=== PATIENT | female | born 1970 | race African-American/Black ===

== ENCOUNTER → 2017-04-01 | Outpatient (CLI) | payer BC ==
--- NOTE | 2017-04-01 09:36 | RAD ---
EXAM: DIGITAL SCREEN BILAT W/CAD. HISTORY: Screening. COMPARISON: 11/16/2015 and 07/19/2014. FINDINGS: Digital mammography was performed. Computer-aided detection (CAD) was utilized. The breast parenchyma is heterogeneously dense, which could reduce sensitivity of mammography (tissue density C). No dominant suspicious mass, suspicious microcalcifications, or architectural distortion is identified. IMPRESSION: No mammographic evidence of malignancy. BI-RADS CATEGORY: 1 NEGATIVE RECOMMENDED FOLLOW-UP: 12M 12 MONTH FOLLOW-UP PQRS compliance statement: Patient information was entered into a reminder system with a target due date for the next mammogram. Mammography is a sensitive method for finding small breast cancers, but it does not detect them all and is not a substitute for careful clinical examination. A negative mammogram does not negate a clinically suspicious finding and should not result in delay in biopsying a clinically suspicious abnormality. "Our facility is accredited by the [employer] Mammography [employer]."
== END | disposition home or self-care (01) ==
LOC: MAMMO 07:38
PROVIDERS: ATTEND Obstetrics & Gynecology
DX: Z12.31 Encounter for screening mammogram for malignant neoplasm of breast (principal)
CPT/HCPCS: G0202; 77067

== ENCOUNTER → 2017-04-07 | Outpatient (CLI) | payer BC ==
[2017-04-07 09:46] LABS: BASO % 0 % (0-3); EOS % 1 % (0-3); HEMATOCRIT 37.6 % (36.0-47.0); HEMOGLOBIN 12.7 g/dL (12.0-15.5); LYMPH # 1.9 x10^3/uL (1.0-4.8); LYMPH % 38 % (24-48); MEAN CORPUSCULAR HEMOGLOBIN 29 pg (25-35); MEAN CORPUSCULAR HGB CONC 34 g/dL (31-37); MEAN CORPUSCULAR VOLUME 86 fL (79-100); MONO # 0.4 x10^3/uL (0.0-1.1); MONO % 9 % (0-9); NEUT # 2.6 x10^3uL (1.8-7.7); NEUT % 52 % (31-73); PLATELET COUNT 232 x10^3/uL (140-400); RED BLOOD COUNT 4.37 x10^6/uL (3.50-5.40); RED CELL DISTRIBUTION WIDTH 12.8 % (11.5-14.5); WHITE BLOOD COUNT 5.1 x10^3/uL (4.0-11.0)
[2017-04-07 09:54] LABS: ALBUMIN 3.4 g/dL (3.4-5.0); ALBUMIN/GLOBULIN RATIO 0.9 (1.0-1.7); CALCIUM 8.4 mg/dL (8.5-10.1); GFR 72.5; TOTAL BILIRUBIN 0.2 mg/dL (0.2-1.0); TOTAL PROTEIN 7.3 g/dL (6.4-8.2)
--- NOTE | 2017-04-07 12:58 | RAD ---
Indication irregular menstrual periods. Initially transabdominal scans were obtained. Initial transabdominal scans were supplemented with transvaginal scans. History of tubal ligation is noted. It will be assumed for the purposes of this dictation that the hCG status is negative. The uterus measures approximately 10 x 4.4 x 4 cm. Endometrial thickness is unremarkable at approximately 6 mm. Within the body of the uterus there are 2 masses compatible with fibroids each measuring approximately 2 cm in greatest dimension. The ovaries are seen on the transabdominal scans and appear unremarkable. No significant free fluid was seen in the pelvis. IMPRESSION: Fibroid uterus. Normal endometrium and ovaries
[2017-04-07 15:29] LABS: FREE T4 1.07 ng/dL (0.76-1.46); THYROID STIM HORMONE (TSH) 2.17 uIU/mL (0.358-3.740)
[2017-04-07 21:10] LABS: DHEA SO4 174.5 ug/dL (41.2-243.7); FSH 11.5 mIU/mL (.); LUTEINIZING HORMONE 3.8 mIU/mL (.)
[2017-04-08 05:10] LABS: HEMOGLOBIN A1C 5.4 % (4.8-5.6)
[2017-04-08 06:09] LABS: INSULIN LEVEL 9.7 uIU/mL (2.6-24.9)
== END | disposition home or self-care (01) ==
LOC: LAB 08:28
PROVIDERS: ATTEND Obstetrics & Gynecology
DX: N92.6 Irregular menstruation, unspecified (principal); D25.9 Leiomyoma of uterus, unspecified; Z98.51 Tubal ligation status
CPT/HCPCS: 36415; 76830; 76856; 80053; 80061; 82627; 83001; 83002; 83036; 83525; 84402; 84403; 84439; 84443; 84480; 85027

== ENCOUNTER → 2018-06-04 | Outpatient (CLI) | payer OTHER ==
--- NOTE | 2018-06-04 13:07 | RAD ---
DATE: 06/04/2018 EXAM: DIGITAL SCREEN BILAT W/CAD HISTORY: Routine screening COMPARISON: 04/01/2017 This study was interpreted with the benefit of Computerized Aided Detection (CAD). The breast parenchyma is heterogeneously dense, which could reduce sensitivity of mammography. Breast parenchyma level C. FINDINGS: No new or enlarging breast densities are seen. No suspicious microcalcifications are evident. IMPRESSION: Stable mammograms without evidence of malignancy. BI-RADS CATEGORY: 1 NEGATIVE RECOMMENDED FOLLOW-UP: 12M 12 MONTH FOLLOW-UP PQRS compliance statement: Patient information was entered into a reminder system with a target due date for the next mammogram. Mammography is a sensitive method for finding small breast cancers, but it does not detect them all and is not a substitute for careful clinical examination. A negative mammogram does not negate a clinically suspicious finding and should not result in delay in biopsying a clinically suspicious abnormality. "Our facility is accredited by the [employer] Mammography [employer]."
== END | disposition home or self-care (01) ==
LOC: MAMMO 11:02
PROVIDERS: ATTEND Obstetrics & Gynecology
DX: Z12.31 Encounter for screening mammogram for malignant neoplasm of breast (principal)
CPT/HCPCS: 77067

== ENCOUNTER → 2019-10-31 | Outpatient (CLI) | payer OTHER ==
--- NOTE | 2019-11-01 15:48 | RAD ---
DATE: 10/31/2019 EXAM: DIGITAL SCREEN BILAT W/CAD HISTORY: Routine screening COMPARISON: 06/04/2018, 04/01/2017, 11/16/2015 mammographic exams This study was interpreted with the benefit of Computerized Aided Detection (CAD). Breast Density: HETERO The breast parenchyma is heterogenously dense, which could reduce sensitivity of mammography. Breast parenchyma level C. FINDINGS: A grouping of calcifications involving the right lower central breast are new compared to the previous examination. Calcifications are approximately 8.5 cm from the nipple located in the 6:00 region no dominant mass. No distortion. Subareolar ductal ectasia bilaterally appears to be present.. IMPRESSION: New right breast calcification cluster BI-RADS CATEGORY: 0 INCOMPLETE: NEEDS ADDITIONAL IMAGING EVALUATION AND/OR PRIOR MAMMOGRAMS FOR COMPARISON. RECOMMENDED FOLLOW-UP: ADD ADDITIONAL IMAGING. Spot magnification in the mediolateral and CC projections recommended. Medial lateral view recommended. PQRS compliance statement: Patient information was entered into a reminder system with a target due date for the next mammogram. Mammography is a sensitive method for finding small breast cancers, but it does not detect them all and is not a substitute for careful clinical examination. A negative mammogram does not negate a clinically suspicious finding and should not result in delay in biopsying a clinically suspicious abnormality. "Our facility is accredited by the [employer] Mammography [employer]."
== END | disposition home or self-care (01) ==
LOC: MAMMO 11:31
PROVIDERS: ATTEND Family Medicine
DX: Z12.31 Encounter for screening mammogram for malignant neoplasm of breast (principal); N64.89 Other specified disorders of breast
CPT/HCPCS: 77067

== ENCOUNTER → 2019-11-04 | Outpatient (CLI) | payer BC, OTHER ==
--- NOTE | 2019-11-04 16:37 | RAD ---
DATE: 11/04/2019 EXAM: DIGITAL DIAGNOSTIC RT HISTORY: Abnormal mammogram COMPARISON: 11/16/2015, 04/01/2017, 06/04/2018, 10/04/2019 screen mammographic exams This study was interpreted with the benefit of Computerized Aided Detection (CAD). Breast Density: HETERO The breast parenchyma is heterogenously dense, which could reduce sensitivity of mammography. Breast parenchyma level C. FINDINGS: Mediolateral view of the right breast was obtained. Spot magnification imaging in the MLO and CC projections of the right lower central breast calcifications were obtained. Multiple punctate calcifications are present and of indeterminate significance. Slight variation in size noted. IMPRESSION: Indeterminate right breast calcifications BI-RADS CATEGORY: 4 SUSPICIOUS ABNORMALITY- BIOPSY SHOULD BE CONSIDERED RECOMMENDED FOLLOW-UP: BIO BIOPSY RECOMMENDED. Stereotactic biopsy of right breast calcifications is recommended. Patient was informed at the time of her visit. PQRS compliance statement: Patient information was entered into a reminder system with a target due date for the next mammogram. Mammography is a sensitive method for finding small breast cancers, but it does not detect them all and is not a substitute for careful clinical examination. A negative mammogram does not negate a clinically suspicious finding and should not result in delay in biopsying a clinically suspicious abnormality. "Our facility is accredited by the [employer] Mammography [employer]."
== END | disposition home or self-care (01) ==
LOC: MAMMO 14:59
PROVIDERS: ATTEND Family Medicine
DX: R92.1 Mammographic calcification found on diagnostic imaging of breast (principal)
CPT/HCPCS: 77065